=== PATIENT | male | born 2005 | race Hispanic/Latino ===

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

== ENCOUNTER 2024-03-19 11:55 | Emergency (ER) | payer MEDICAID, OTHER ==
[~2024-03-19] VITALS: Ht 180.3 cm; Wt 88.0 kg
[2024-03-19 12:11] VITALS: BP 141/85; PULSE 74; RESP 18
[2024-03-19] MEDS: NEOMY SULF/BACITRA/POLYMYXIN B 1 EACH PACKET TP ONE (12:49)
[2024-03-19] MEDS: LIDOCAINE HCL 1% 20 ML VIAL INJ SCH (12:50)
[2024-03-19] MEDS: IBUPROFEN 800 MG TAB PO ONE (12:50)
[2024-03-19] MEDS: TETANUS/DIPHTHERIA TOXOID [ADULT] 0.5 ML VIAL IM ONE (12:52)
[2024-03-19] MEDS ORDERED: CEPH500B PO (13:29)
[2024-03-19] MEDS ORDERED: IBUP-2077 PO (13:29)
== END 2024-03-19 13:44 | disposition home or self-care (01) ==
LOC: EDH 11:55
DX: S61.217A Laceration without foreign body of left little finger without damage to nail, initial encounter (principal); Z79.899 Other long term (current) drug therapy; W45.8XXA Other foreign body or object entering through skin, initial encounter; Y93.89 Activity, other specified; Y92.89 Other specified places as the place of occurrence of the external cause; Y99.8 Other external cause status
CPT/HCPCS: 12001; 90471; 90714

== ENCOUNTER 2024-10-19 09:39 | Emergency (ER) | payer BC ==
[~2024-10-19] VITALS: Ht 182.9 cm; Wt 99.8 kg
[~2024-10-19 09:39] MED LIST: CEPH500B PO; IBUP-2077 PO
[2024-10-19 09:42] VITALS: BP 162/84; PULSE 83; RESP 18; TEMP 98.2
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
--- NOTE | 2024-10-19 11:08 | NUR ---
PT JUST NOW PLACED IN ED BED HALLWAY B
[2024-10-19] MEDS: ibuPROFEN 800 MG TAB PO ONE (11:23)
--- NOTE | 2024-10-19 11:45 | NUR ---
FIBERGLASS SPLINT APPLICATION: RODRIGO CARDONA PLACED A SHORT POSTERIOR FIBERGLASS SPLINT 3" W/COTTOM MATERIAL BENEATH AND ABBEY WRAP. +CMS DISTALLY TO L FOOT.
== END 2024-10-19 12:15 | disposition home or self-care (01) ==
LOC: EDH 09:39
DX: S93.402A Sprain of unspecified ligament of left ankle, initial encounter (principal); X50.1XXA Overexertion from prolonged static or awkward postures, initial encounter; Y93.89 Activity, other specified; Y92.89 Other specified places as the place of occurrence of the external cause; Y99.8 Other external cause status
CPT/HCPCS: 29515; 73610; 99283